=== PATIENT | male | born 1990 | race Caucasian/White ===

== ENCOUNTER 2017-04-28 13:55 | Emergency (ER) | payer OTHER ==
[2017-04-28 14:38] LABS: ABS Basophils 0 10^3/ul (0-0.2); ABS Eosinophils 0 10^3/ul (0-0.6); ABS Monocytes 1.1 10^3/ul (0-0.8); ABS Neutrophils 9.5 10^3/ul (1.5-7.7); ABS Nucleated RBC 0 10^3/ul; Eosinophil % 0.3 % (0-6); Hematocrit 43 % (42-52); Hemoglobin 14.6 g/dl (14.0-18.0); Lymphocyte % 15.8 % (25-47); Mean Corpuscular HGB Conc 34 g/dl (31-36); Mean Corpuscular Hemoglobin 29 pg (27-31); Mean Corpuscular Volume 87 fL (80-94); Mean Platelet Volume 8 um3 (7.4-10.4); Nucleated Red Blood Cells % 0; Platelet Count 223 10^3/ul (150-450); Red Blood Count 4.95 10^6/ul (4.0-5.4); Red Cell Distribution Width 13 % (10.5-15); White Blood Count 12.6 10^3/ul (3.5-10.8)
[2017-04-28 14:58] LABS: EGFR Non-African American 54.5 (>60)
[2017-04-28] MEDS ORDERED: Morphine INJ* 4 MG/ML 1 ML CARPUJECT IV ONE (15:23)
[2017-04-28] MEDS ORDERED: NS 0.9% 1000 ML* 1,000 ML IV ONE (15:23)
[2017-04-28] MEDS ORDERED: Ondansetron INJ* 2 MG/ML VIAL IV ONE (15:23)
[2017-04-28] MEDS ORDERED: Morphine INJ* 4 MG/ML 1 ML SYRINGE (NEW SYRINGE VERSION) ONE (15:30)
--- NOTE | 2017-04-28 15:55 | RAD ---
CLINICAL HISTORY: Left lower quadrant pain with radiation to the left testicle COMPARISON: None TECHNIQUE: Multiple contiguous axial CT scans were obtained of the abdomen and pelvis, without intravenous contrast enhancement. Coronal and sagittal multiplanar reformations are submitted for review. Oral contrast was not administered. FINDINGS: LUNG BASES: The lung bases are clear. LIVER: The liver is normal in shape, size, contour, and attenuation. BILE DUCTS: There is no intrahepatic or extrahepatic biliary dilatation. GALLBLADDER: The gallbladder is normal, without pericholecystic inflammatory change. PANCREAS: The pancreas is normal, without mass or ductal dilatation. SPLEEN: Normal in size and appearance. UPPER GI TRACT: Evaluation of the gastrointestinal tract is limited by incomplete gastric distention. The upper GI tract is unremarkable. SMALL BOWEL AND MESENTERY: The small bowel is normal in contour, course, and caliber. There is no obstruction or dilatation. COLON: The colon is normal in contour, course, caliber. There is no pericolonic inflammatory change. ADRENALS: Normal bilaterally. KIDNEYS: There are multiple right renal calyceal stones measuring up to 0.4 centers in depth. There is a 0.4 cm calculus of the distal third of the left ureter with moderate pelvic caliectasis and hydroureter. BLADDER: The bladder is smooth in contour. PELVIC ORGANS: The prostate gland is normal. The seminal vesicles are symmetric. AORTA: The aorta is normal. IVC: Unremarkable LYMPH NODES: There is no lymphadenopathy by size criteria. ABDOMINAL WALL: There is no evidence for abdominal wall hernia. BONES AND SOFT TISSUES: Unremarkable OTHER: None IMPRESSION: BILATERAL NEPHROLITHIASIS, INCLUDING A 0.4 CM DISTAL LEFT URETERAL STONE WITH LEFT-SIDED HYDRONEPHROSIS
[2017-04-28] MEDS ORDERED: Ketorolac INJ* 30 MG/ML 1 ML VIAL IV PUSH ONE (17:13)
[2017-04-28] MEDS ORDERED: Potassium Chlor TAB* 20 MEQ TAB.ER PO ONE (17:13)
[2017-04-28 17:56] LABS: Urine Appearance Cloudy; Urine Blood 2+ (Negative); Urine Color Yellow; Urine Ketones Negative (Negative); Urine Protein Negative (Negative); Urine Specific Gravity 1.018 (1.010-1.030); Urine Urobilinogen Negative (Negative)
[2017-04-28] MEDS ORDERED: Tamsulosin CAP* 0.4 MG PO ONE (18:30)
[2017-04-28] MEDS ORDERED: Ciprofloxacin TAB* 500 MG PO ONE (18:30)
[2017-04-28 19:13] VITALS: BP 139/73
--- NOTE | 2017-04-30 08:38 | ED ---
Fredis Lundberg Angela, scribed for Lambert Hudson MD on 04/28/17 at 1521 . Abdominal Pain/Male - HPI Summary HPI Summary: This pt is a 26 y/o male presenting to [facility] c/o lower abdominal pain since 20: 00 last night. Pt additionally notes nausea, vomiting. He reports his abd pain radiates down his left testicle. Pt rates his pain 10/10 in severity. He denies diarrhea, constipation. The last time he had a bowel movement was early this morning, non-bloody and without mucous. Pt has not had sex in 6-8 months. He denies penile discharge. He notes he has had similar lower abd pain in the past but has only lasted a few hours. Denies PMHx. - History of Current Complaint Chief Complaint: EDAbdPain Stated Complaint: LOWER ABD PAIN, Time Seen by Provider: 04/28/17 15:14 Hx Obtained From: Patient Onset/Duration: Lasting Hours, Still Present Timing: Lasting Hours Severity Currently: Severe Pain Intensity: 10 Pain Scale Used: 0-10 Numeric Location: Diffuse Radiates: Yes Radiates to: Other - left testicle Aggravating Factor(s): Movement Alleviating Factor(s): Nothing Associated Signs And Symptoms: Positive: Nausea, Vomiting, Other - NEG: diarrhea. Negative: Constipation, Diarrhea, Penile Discharge - Allergies/Home Medications Allergies/Adverse Reactions: Allergies Allergy/AdvReac Type Severity Reaction Status Date / Time No Known Allergies Allergy Verified 08/03/14 08:17 PMH/Surg Hx/FS Hx/Imm Hx Endocrine/Hematology History: Denies: Hx Diabetes Cardiovascular History: Denies: Hx Hypertension Sensory History: Denies: Hx Contacts or Glasses, Hx Hearing Aid Opthamlomology History: Denies: Hx Contacts or Glasses - Surgical History Surgery Procedure, Year, and Place: WISDOM TEETH- MD OFFICE- WITH SEDATION Hx Anesthesia Reactions: No Infectious Disease History: No Infectious Disease History: Denies: Traveled Outside the [place] in Last 30 Days - Family History Known Family History: Positive: Cardiac Disease - Grandfather: heart surgery - Social History Alcohol Use: Occasionally Substance Use Type: Reports: None Smoking Status (MU): Never Smoked Tobacco Review of Systems Negative: Fever, Chills Eyes: Negative ENT: Negative Positive: Abdominal Pain, Vomiting, Nausea. Negative: Diarrhea, Other - constipation Negative: discharge Skin: Negative Neurological: Negative All Other Systems Reviewed And Are Negative: Yes Physical Exam - Summary Physical Exam Summary: VITAL SIGNS: Reviewed. GENERAL: Patient is a well-developed and nourished male who is lying comfortable in the stretcher. Patient is not in any acute respiratory distress. HEAD AND FACE: Normocephalic and atraumatic. EYES: PERRLA, EOMI x 2, No injected conjunctiva. EARS: Hearing grossly intact. Ear canals and tympanic membranes are WNL. MOUTH: Oropharynx within normal limits. NECK: Supple, trachea is midline, no adenopathy, no JVD. CHEST: Symmetric, no tenderness at palpation LUNGS: Clear to auscultation bilaterally. No wheezing or crackles. CVS: RRR, S1 and S2 present, no murmurs or gallops appreciated. ABDOMEN: Soft. Left lower quadrant tenderness. No signs of distention. Positive bowel sounds. No rebound no guarding, and no masses palpated. No abdominal bruit or pulsations. Left costovertebral tenderness. : Circumcised penis without any discharge. Both testicles are descended. No masses are appreciated. Positive cremasteric reflex. EXTREMITIES: FROM in all major joints, no edema, no cyanosis or clubbing. NEURO: Alert and oriented x 3. No acute neurological deficits. Speech is normal. SKIN: Dry and warm Triage Information Reviewed: Yes Vital Signs On Initial Exam: Initial Vitals Temp Pulse Resp BP Pulse Ox 99.1 F 115 16 122/54 100 04/28/17 14:09 04/28/17 14:04/28/17 14:04/28/17 14:04/28/17 14:09 Vital Signs Reviewed: Yes Diagnostics - Vital Signs Vital Signs Temp Pulse Resp BP Pulse Ox 04/28/17 14:09 99.1 F 115 16 122/54 100 - Laboratory Lab Results: Lab Results 04/28/17 04/28/17 Range/Units 14:26 14:26 WBC 12.6 H (3.5-10.8) 10^3/ul RBC 4.95 (4.0-5.4) 10^6/ul Hgb 14.6 (14.0-18.0) g/dl Hct 43 (42-52) % MCV 87 (80-94) fL MCH 29 (27-31) pg MCHC 34 (31-36) g/dl RDW 13 (10.5-15) % Plt Count 223 (150-450) 10^3/ul MPV 8 (7.4-10.4) um3 Neut % (Auto) 75.1 (38-83) % Lymph % (Auto) 15.8 L (25-47) % [place] % (Auto) 8.5 (1-9) % Eos % (Auto) 0.3 (0-6) % Baso % (Auto) 0.3 (0-2) % Absolute Neuts (auto) 9.5 H (1.5-7.7) 10^3/ul Absolute Lymphs (auto) 2.0 (1.0-4.8) 10^3/ul Absolute Monos (auto) 1.1 H (0-0.8) 10^3/ul Absolute Eos (auto) 0 (0-0.6) 10^3/ul Absolute Basos (auto) 0 (0-0.2) 10^3/ul Absolute Nucleated RBC 0 10^3/ul Nucleated RBC % 0 Sodium 136 (133-145) mmol/L Potassium 3.2 L (3.5-5.0) mmol/L Chloride 101 (101-111) mmol/L Carbon Dioxide 25 (22-32) mmol/L Anion Gap 10 (2-11) mmol/L BUN 17 (6-24) mg/dL Creatinine 1.55 H (0.67-1.17) mg/dL Est GFR ( Amer) 70.1 (>60) Est GFR (Non-Af Amer) 54.5 (>60) BUN/Creatinine Ratio 11.0 (8-20) Glucose 140 H (70-100) mg/dL Calcium 9.5 (8.6-10.3) mg/dL Total Bilirubin 1.20 H (0.2-1.0) mg/dL AST 20 (13-39) U/L ALT 26 (7-52) U/L Alkaline Phosphatase 52 (34-104) U/L C-Reactive Protein 6.02 H (< 5.00) mg/L Total Protein 7.3 (6.4-8.9) g/dL Albumin 4.8 (3.2-5.2) g/dL Globulin 2.5 (2-4) g/dL Albumin/Globulin Ratio 1.9 (1-3) Lipase 24 (11.0-82.0) U/L Result Diagrams: 04/28/17 14:26 04/28/17 14:26 Lab Statement: Any lab studies that have been ordered have been reviewed, and results considered in the medical decision making process. - CT Abdomen/pelvis CT CT Interpretation: Positive (See Comments) - IMPRESSION: Bilateral nephrolithiasis, including a 0.4 cm distal left ureteral stone with left-sided hydronephrosis. Dr. Hudson has reviewed this radiology report. CT Interpretation Completed By: Radiologist Abdominal Pain Fem Course/Dx - Course Assessment/Plan: This pt is a 26 y/o male presenting to [facility] c/o lower abdominal pain since 20:00 last night. Pt additionally notes nausea, vomiting. He reports his abd pain radiates down his left testicle. Pt rates his pain 10/ 10 in severity. He denies diarrhea, constipation. The last time he had a bowel movement was early this morning, non-bloody and without mucous. Pt has not had sex in 6-8 months. He denies penile discharge. He notes he has had similar lower abd pain in the past but has only lasted a few hours. Denies PMHx. Test results show WBC of 12.6, potassium of 3.2, creatinine of 1.55, CRP of 6. Urinalysis is positive for UTI. CT abdomen/pelvis: Bilateral nephrolithiasis, including a 0.4 cm distal left ureteral stone with left-sided hydronephrosis. In the ED course, the pt was given IV fluids, Toradol and morphine for the pain , and all his symptoms resolved. At this point he is asymptomatic. Since he does not have a fever and is feeling better I prescribed the pt Ciprofloxacin and gave the pt a referral to urology. Pt was instructed to immediately return to the ED for any fever, chills or worsening symptoms for further work up and managements. He understands and agrees. He is feeling better. Pt is hemodynamically stable, alert and oriented x3. - Diagnoses Provider Diagnoses: Urinary tract infection, Ureterolithiasis Discharge - Discharge Plan Condition: Stable Disposition: HOME Prescriptions: Ciprofloxacin TAB* [Cipro 500 MG TAB*] 500 mg PO BID #10 tab HYDROcodone/ACETAMIN 5-325 MG* [[place] 5-325 TAB*] 1 tab PO Q6H PRN #15 tab MDD 4 PRN Reason: Pain Tamsulosin CAP* [Flomax CAP*] 0.4 mg PO DAILY #5 cap Patient Education Materials: Kidney Stones (ED), Urinary Tract Infection in Men (ED) Referrals: Octavio Mcwilliams MD [Primary Care Provider] - 3 Days Additional Instructions: Please follow up with your primary care provider. RETURN TO THE ED FOR ANY WORSENING SYMPTOMS. The documentation as recorded by the Fredis carrasquillo Angela accurately reflects the service I personally performed and the decisions made by , Lambert Hudson MD.
== END 2017-04-28 19:12 | disposition home or self-care (01) ==
LOC: ED 13:55
DX: S93.401A Sprain of unspecified ligament of right ankle, initial encounter (principal); W10.9XXA Fall (on) (from) unspecified stairs and steps, initial encounter; F17.290 Nicotine dependence, other tobacco product, uncomplicated
CPT/HCPCS: 36415; 74176; 80053; 81003; 81015; 83690; 85025; 86140; 96372; 99282; A9270-GY; J1885; J2270; J2405